=== PATIENT | female | born 1955 | race Caucasian/White ===

== ENCOUNTER 2019-12-09 00:54 | Inpatient (IN) | payer MEDICAID ==
[~2019-12-09] VITALS: Ht 170.2 cm; Wt 82.6 kg
[2019-12-09] MEDS ORDERED: ASPIRIN 325MG TABLET PO ONE (01:30)
[2019-12-09 02:38] LABS: BASOPHILS % 0.7 % (0.0-2.0); EOSINOPHILS % 3.3 % (0.0-5.0); HEMATOCRIT. 43.1 % (36.0-48.0); HEMOGLOBIN. 14.2 g/dL (12.0-16.0); LYMPHOCYTES % 16.3 % (20.0-50.0); MEAN CORPUSCULAR HEMOGLOBIN 29.6 pg (28.0-32.0); MEAN CORPUSCULAR VOLUME 89.8 fL (81.0-99.0); MEAN PLATELET VOLUME 8.9 fl (7.4-10.4); MONOCYTES % 8.8 % (2.0-8.0); NEUTROPHILS % 70.9 % (40.0-76.0); PLATELET 126 x1000/uL (130-400); RED BLOOD CELL COUNT 4.81 mill/uL (4.2-5.4); RED CELL DISTRIBUTION WIDTH 15.1 % (11.6-14.6)
[2019-12-09 02:41] LABS: CHLORIDE 105 mEq/L (98-107)
[2019-12-09 02:51] LABS: INR 1.2; PROTHROMBIN TIME 12.6 sec (9.6-11.0)
[2019-12-09] MEDS ORDERED: NITROGLYCERIN OINT 1GM/INCH UDPKT TD NR (03:15)
[2019-12-09 05:13] LABS: CLARITY URINE CLOUDY (CLEAR); COLOR URINE DARK YELLOW (YELLOW); KETONES URINE NEGATIVE (NEGATIVE); LEUKOCYTE ESTERASE URINE TRACE (NEGATIVE); NITRITE URINE NEGATIVE (NEGATIVE); OCCULT BLOOD URINE NEGATIVE (NEGATIVE); PROTEIN URINE 3+ (NEGATIVE); SPECIFIC GRAVITY URINE 1.033 (1.005-1.030)
[2019-12-09 08:37] VITALS: BP 117/66
[2019-12-09] MEDS ORDERED: CLONIDINE 0.1MG TABLET PO PRN (09:15)
[2019-12-09] MEDS ORDERED: IPRATROPIUM/ALBUTEROL 0.5-3(2.5)MG/3ML NEB HHN PRN (09:15)
[2019-12-09] MEDS ORDERED: DOCUSATE SODIUM 100MG CAPSULE PO PRN (09:15)
[2019-12-09] MEDS ORDERED: ACETAMINOPHEN 325MG TABLET PO PRN ×2 (09:15)
[2019-12-09] MEDS ORDERED: GUAIFENESIN 200MG/10ML SUGAR FREE UDC PO PRN (09:15)
[2019-12-09] MEDS ORDERED: MAGNESIUM/ALUMINUM HYDROXIDE/SIMETHICONE 30ML UDC PO PRN (09:15)
[2019-12-09] MEDS ORDERED: LORAZEPAM 0.5MG TABLET PO PRN (09:15)
[2019-12-09] MEDS ORDERED: ONDANSETRON HCL 4MG/2ML INJ IV PRN (09:15)
[2019-12-09] MEDS: FUROSEMIDE 40MG/4ML VIAL IVP SCH ×2 (09:48→16:46)
[2019-12-09] MEDS ORDERED: POTASSIUM (10:32)
[2019-12-09] MEDS ORDERED: LASIX (10:32)
[2019-12-09] MEDS ORDERED: POTASS (10:32)
[2019-12-09 12:00] VITALS: BP 102/59
[2019-12-09] MEDS ORDERED: INFLUENZA VACCINE 05/PF 0.5 ML VIAL IM ONE (12:00)
[2019-12-09] MEDS ORDERED: PNEUMOCOCCAL 23-VAL P-SAC VAC 0.5 ML IM ONE (12:00)
[2019-12-09 12:35] LABS: *BENZODIAZEPINES SCREEN URINE NEGATIVE (NEGATIVE)
[2019-12-09 12:36] LABS: *AMPHETAMINES SCREEN URINE PRESUMTIVE POSITIVE (NEGATIVE); *BARBITURATES SCREEN URINE NEGATIVE (NEGATIVE); *COCAINE SCREEN URINE NEGATIVE (NEGATIVE); CANNABINOID URINE SCREEN NEGATIVE (NEGATIVE); METHADONE URINE SCREEN NEGATIVE (NEGATIVE); OPIATES URINE SCREEN NEGATIVE (NEGATIVE); PHENCYCLIDINE URINE SCREEN NEGATIVE (NEGATIVE)
[2019-12-09 16:00] VITALS: BP 98/59
[2019-12-09] MEDS: NICOTINE 14MG PATCH TD SCH (17:47)
[2019-12-09 20:00] VITALS: BP 122/74
[2019-12-09] MEDS: PIPERACILLIN/TAZOBACTAM 3.375 G in DEXT 5% WATER 100 ML IV SCH (21:23)
[2019-12-09] MEDS: HEPARIN 5000 UNITS/ML VIAL SUBCUT SCH (21:46)
[2019-12-09 22:06] LABS: HEPATITIS B SURFACE ANTIGEN NEGATIVE
[2019-12-09 22:35] LABS: HEPATITIS A AB IGM NEGATIVE (NEGATIVE)
[2019-12-09] MEDS ORDERED: IOHEXOL-350 100 ML BOTTLE ONE (23:14)
[2019-12-10] VITALS: BP 104/53
[2019-12-10] MEDS: HYDROCODONE/ACETAMINOPHEN 5/325MG TABLET PO PRN ×3 (00:07→21:11)
[2019-12-10] MEDS: PIPERACILLIN/TAZOBACTAM 3.375 G in DEXT 5% WATER 100 ML IV SCH ×4 (02:19→21:15)
[2019-12-10 04:00] VITALS: BP 98/50
[2019-12-10 05:48] LABS: CHLORIDE 105 mEq/L (98-107)
[2019-12-10 05:53] LABS: PHOSPHORUS 3.4 mg/dL (2.5-4.9)
[2019-12-10 06:12] LABS: BASOPHILS % 0.6 % (0.0-2.0); EOSINOPHILS % 4.9 % (0.0-5.0); HEMATOCRIT. 39.4 % (36.0-48.0); LYMPHOCYTES % 16.6 % (20.0-50.0); MEAN CORPUSCULAR HEMOGLOBIN 29.5 pg (28.0-32.0); MEAN CORPUSCULAR VOLUME 89.8 fL (81.0-99.0); MEAN PLATELET VOLUME 8.5 fl (7.4-10.4); NEUTROPHILS % 67.9 % (40.0-76.0); PLATELET 91 x1000/uL (130-400); RED BLOOD CELL COUNT 4.39 mill/uL (4.2-5.4); RED CELL DISTRIBUTION WIDTH 15.2 % (11.6-14.6)
[2019-12-10 08:00] VITALS: BP 100/60
[2019-12-10] MEDS: HEPARIN 5000 UNITS/ML VIAL SUBCUT SCH (08:24)
[2019-12-10 08:25] LABS: BG BASE EXCESS 6.5 mmol/L (-2.0-2.0); BG DEOXYHEMOGLOBIN 5.9 % (0.0-5.0); BG FRACTION INSPIRED OXYGEN 21; BG HCO3 ACT 32.8 mmol/L (22.0-26.0); BG METHEMOGLOBIN 0.1 % (0.0-1.5); BG PCO2 53.9 mmHg (35.0-45.0); BG PH 7.402 (7.350-7.450); BG PO2 70.9 mmHg (75.0-100.0); BG SAMPLE SITE LEFT BRACHIAL; BG VENT MODE ROOM AIR
[2019-12-10] MEDS: NICOTINE 14MG PATCH TD SCH (09:10)
[2019-12-10] MEDS: FUROSEMIDE 40MG/4ML VIAL IVP SCH ×2 (09:10→16:50)
[2019-12-10 12:00] VITALS: BP 90/50
[2019-12-10 16:00] VITALS: BP 100/49
[2019-12-10 20:00] VITALS: BP 124/78
[2019-12-11] VITALS (9 sets, daily range): BP systolic 83–116; BP diastolic 51–73
[2019-12-11] MEDS: PIPERACILLIN/TAZOBACTAM 3.375 G in DEXT 5% WATER 100 ML IV SCH ×4 (03:39→23:02)
[2019-12-11 06:05] LABS: BASOPHILS % 0.7 % (0.0-2.0); EOSINOPHILS % 4.7 % (0.0-5.0); HEMATOCRIT. 40.7 % (36.0-48.0); HEMOGLOBIN. 13.4 g/dL (12.0-16.0); LYMPHOCYTES % 15.2 % (20.0-50.0); MEAN CORPUSCULAR HEMOGLOBIN 29.3 pg (28.0-32.0); MEAN CORPUSCULAR VOLUME 88.9 fL (81.0-99.0); MEAN PLATELET VOLUME 8.8 fl (7.4-10.4); MONOCYTES % 8.6 % (2.0-8.0); NEUTROPHILS % 70.8 % (40.0-76.0); PLATELET 88 x1000/uL (130-400); RED BLOOD CELL COUNT 4.57 mill/uL (4.2-5.4); RED CELL DISTRIBUTION WIDTH 15.1 % (11.6-14.6)
[2019-12-11 06:12] LABS: CHLORIDE 101 mEq/L (98-107)
[2019-12-11 06:26] LABS: PHOSPHORUS 3.3 mg/dL (2.5-4.9)
[2019-12-11] MEDS: HYDROCODONE/ACETAMINOPHEN 5/325MG TABLET PO PRN ×2 (06:30→20:58)
[2019-12-11] MEDS: FUROSEMIDE 40MG/4ML VIAL IVP SCH ×2 (09:55→17:43)
[2019-12-11] MEDS: NICOTINE 14MG PATCH TD SCH (09:56)
[2019-12-11] MEDS ORDERED: POTASSIUM CHLORIDE 20MEQ TABLET SR PO SCH ×2 (10:21→12:45)
[2019-12-11] MEDS ORDERED: MAGNESIUM 2 G PREMIX 50 ML IV NR (14:00)
[2019-12-12] VITALS: BP 103/73
[2019-12-12 04:00] VITALS: BP 103/64
[2019-12-12] MEDS: PIPERACILLIN/TAZOBACTAM 3.375 G in DEXT 5% WATER 100 ML IV SCH ×2 (04:07→08:56)
[2019-12-12 05:12] LABS: HIV SCREEN 4G Non Reactive (Non Reactive)
[2019-12-12 08:00] VITALS: BP 105/68
[2019-12-12] MEDS: FUROSEMIDE 40MG/4ML VIAL IVP SCH ×2 (08:56→09:00)
[2019-12-12] MEDS: NICOTINE 14MG PATCH TD SCH (08:56)
[2019-12-12] MEDS ORDERED: MAGNESIUM OXIDE 400MG TABLET PO SCH (09:00)
[2019-12-12] MEDS ORDERED: POTASSIUM CHLORIDE 20MEQ TABLET SR PO NR (12:00)
[2019-12-12] MEDS ORDERED: CARVEDILOL 3.125 MG TABLET PO SCH (21:00)
== END 2019-12-12 12:00 | disposition short-term general hospital (02) | DRG 812 ==
LOC: ER 00:54 → 8WST 04:16 → EDBEDREQ 04:18 → EDBEDREQSVC 04:18 → EDBEDREQTM 04:18 → ENRESERV 07:30
PROVIDERS: ADMIT Internal Medicine; ATTEND Internal Medicine
DX: T43.621A Poisoning by amphetamines, accidental (unintentional), initial encounter (principal); J96.00 Acute respiratory failure, unspecified whether with hypoxia or hypercapnia; D69.6 Thrombocytopenia, unspecified; D72.821 Monocytosis (symptomatic); J91.8 Pleural effusion in other conditions classified elsewhere; F15.10 Other stimulant abuse, uncomplicated; F10.10 Alcohol abuse, uncomplicated; J44.0 Chronic obstructive pulmonary disease with (acute) lower respiratory infection; J44.1 Chronic obstructive pulmonary disease with (acute) exacerbation; Z20.828 Contact with and (suspected) exposure to other viral communicable diseases; J18.9 Pneumonia, unspecified organism; I50.23 Acute on chronic systolic (congestive) heart failure; K74.60 Unspecified cirrhosis of liver; R18.8 Other ascites; E11.51 Type 2 diabetes mellitus with diabetic peripheral angiopathy without gangrene; I42.0 Dilated cardiomyopathy; I27.20 Pulmonary hypertension, unspecified; Y92.89 Other specified places as the place of occurrence of the external cause; Z59.0 Homelessness; Z79.899 Other long term (current) drug therapy; R82.71 Bacteriuria; R80.9 Proteinuria, unspecified
CPT/HCPCS: 36415; 36600; 71045; 71275; 76700; 80048; 80053; 80061; 80305; 81003; 82375; 82805; 83036; 83605; 83735; 83880; 84100; 84145; 84484; 85025; 85379; 86705; 86709; 86803; 87340; 87389; 87426; 90686; 93005; 93306; 93923; 93970; 99285; J1644; J1940; J2543; J3475; J7060; Q9967